=== PATIENT | male | born 1965 | race Caucasian/White ===

== ENCOUNTER 2022-06-26 07:27 | Outpatient (CLI) | payer OTHER | END 2022-06-26 07:28 | disposition home or self-care (01) | LOC: LAB 07:27 | PROVIDERS: ATTEND Internal Medicine | DX: I11.9 Hypertensive heart disease without heart failure (principal); E78.2 Mixed hyperlipidemia; E11.69 Type 2 diabetes mellitus with other specified complication; K76.0 Fatty (change of) liver, not elsewhere classified; E55.9 Vitamin D deficiency, unspecified; K50.811 Crohn's disease of both small and large intestine with rectal bleeding; N41.1 Chronic prostatitis ==

== ENCOUNTER → 2022-06-28 07:05 | Outpatient (CLI) | payer OTHER | END | disposition home or self-care (01) | LOC: LAB 07:05 | PROVIDERS: ATTEND Internal Medicine | DX: I11.9 Hypertensive heart disease without heart failure (principal); E78.2 Mixed hyperlipidemia; E11.69 Type 2 diabetes mellitus with other specified complication; K76.0 Fatty (change of) liver, not elsewhere classified; E55.9 Vitamin D deficiency, unspecified; K50.811 Crohn's disease of both small and large intestine with rectal bleeding; N41.1 Chronic prostatitis ==

== ENCOUNTER 2022-07-12 06:37 | Emergency (ER) | payer OTHER ==
[~2022-07-12] VITALS: Ht 177.8 cm; Wt 115.2 kg
[2022-07-12] MEDS ORDERED: IRBESARTAN-HCT1 EAC1 (06:48)
[2022-07-12] MEDS ORDERED: NORVASC10 MG (06:48)
[2022-07-12] MEDS ORDERED: TOPROL XL100 M1 (06:49)
[2022-07-12] MEDS ORDERED: GLUMETZA1000 MG (06:49)
[2022-07-12] MEDS ORDERED: ASA81 MG (06:49)
[2022-07-12] MEDS ORDERED: TOPROL XL50 M1 (06:49)
[2022-07-12] MEDS ORDERED: CRESTOR10 MG (06:49)
[2022-07-12] MEDS ORDERED: PEPCID20 MG PO (10:35)
[2022-07-12] MEDS ORDERED: LEVSIN/SL0.125 MG SL (10:35)
== END 2022-07-12 10:42 | disposition home or self-care (01) ==
LOC: ER 06:37
DX: B34.9 Viral infection, unspecified (principal); I10 Essential (primary) hypertension; Z20.822 Contact with and (suspected) exposure to COVID-19; Z91.013 Allergy to seafood